=== PATIENT | male | born 1945 | race Caucasian/White ===

== ENCOUNTER 2019-11-07 12:11 | Outpatient (CLI) | payer OTHER ==
[~2019-11-07 12:11] MED LIST: BUPR-173 PO; CIPR500T3 PO; CITA40TA12 PO; DOCU240C53 PO; ENOX100S5 SQ; GABA300C10 PO; METR500T PO; MORP30TA PO; OMEP-110 PO; PROM25SU34 PO; SENN8.6T64 PO; SIMV10TA18 PO; WARF10TA PO
[2019-11-07] MEDS ORDERED: FENTANYL PF 100 MCG/2ML ONE (13:09)
[2019-11-07] MEDS ORDERED: NALOXONE 1 MG/ML, 2ML ONE (13:09)
[2019-11-07] MEDS ORDERED: FLUMAZENIL 0.1 MG/1 ML, 5ML ONE (13:09)
[2019-11-07] MEDS ORDERED: MIDAZOLAM 1 MG/ML, 5ML ONE ×2 (13:09)
[2019-11-07] MEDS ORDERED: DIPHENHYDRAMINE 50 MG/ML, 1ML ONE (14:14)
== END 2019-11-07 23:59 | disposition home or self-care (01) ==
LOC: RAD 12:11
PROVIDERS: ATTEND Nurse Practitioner Family
DX: M54.5 Low back pain (principal); M47.896 Other spondylosis, lumbar region; M47.894 Other spondylosis, thoracic region; J43.9 Emphysema, unspecified; G20 Parkinson's disease; G47.30 Sleep apnea, unspecified; F17.210 Nicotine dependence, cigarettes, uncomplicated; Z88.0 Allergy status to penicillin; Z88.8 Allergy status to other drugs, medicaments and biological substances; Z88.1 Allergy status to other antibiotic agents; Z79.2 Long term (current) use of antibiotics; Z86.73 Personal history of transient ischemic attack (TIA), and cerebral infarction without residual deficits
CPT/HCPCS: 72146; 72148; 99156; 99157; J1200; J2250; J3010; J2310

== ENCOUNTER 2020-10-21 07:29 | Emergency (ER) | payer MEDICARE, OTHER ==
[~2020-10-21] VITALS: Ht 167.6 cm; Wt 81.9 kg
[~2020-10-21 07:29] MED LIST changes: -CIPR500T3 PO; +CIPR500T4 PO
--- NOTE | 2020-10-21 07:45 | NUR ---
PROVIDER AT BEDSIDE TO DO EVALUATION OF L HIP AND PT.
--- NOTE | 2020-10-21 07:46 | NUR ---
BIB EMS STATE PT FELL THIS AM 0400 WHILE TRYING TO GET OUT OF THE SHOWER ON A 4 INCH LIP. PT INJURED LEFT HIP AND HAD DIFFICULTY WALKING ON IT, NEED WALKER. PT STATES DOESN'T BELIEVE LOST CONSCIOUSNESS, AND NO SECONDARY INJURIES. PT IS ON BLOOD THINNERS FOR THE LAST 20 YEARS FROM TX AND PREVIOUS BLOOD CLOTS. PT DENIES HITTING HEAD.
--- NOTE | 2020-10-21 08:05 | NUR ---
PT TO RADIOLOGY TO LOOK AT HIP.
--- NOTE | 2020-10-21 08:35 | NUR ---
PT BACK FROM RADIOLOGY
[2020-10-21] MEDS ORDERED: hydrOXyzine 10MG TABLET PO ONE (09:00)
--- NOTE | 2020-10-21 09:02 | NUR ---
PT ASKING FOR WATER, GIVEN GLYCERIN SWABS.
--- NOTE | 2020-10-21 09:31 | NUR ---
TASK RN: UPON ENTERING PT ROOM, PT ASKING FOR PAIN MEDS. DISCUSSED WITH PT, DR ANGEL WOULD LIKE HIM TO TRY TO BEAR WEIGHT AND WALK. PT NORMALLY USES 2 CANES. "THEY ONLY BROUGHT ONE WITH ME" PT PROVIDED WITH A WALKER. PT ABLE TO BEAR WEIGHT AND AMB OUT TO WOLFF. GAIT SLOW AND STEADY. DR ANGEL NOTIFIED. PT STATES "HAVE A WALKER AT HOME" REPORT TO STEVEN DINH.
[2020-10-21] MEDS ORDERED: ACETAMINOPHEN 500 MG TABLET PO ONE (10:00)
[2020-10-21] MEDS ORDERED: ACETAMINOPHEN 500 MG TABLET ONE (10:23)
--- NOTE | 2020-10-21 11:10 | NUR ---
SPOKE WITH AT [facility]. SHE WILL TRY TO GET SOMEONE HERE SOON POSSIBLE WITH O2
[2020-10-21 11:15] VITALS: BP 133/71
--- NOTE | 2020-10-21 11:16 | NUR ---
PT STATES PAIN MEDS HELPED SLIGHTLY. PT WAITING FOR DAUGTER TO PATIENT PORTAL REPRESENTATIVE FOR RIDE AFTER 1200 NOON, KNOW PT NEEDS OXYGEN TANK FOR RIDE.
--- NOTE | 2020-10-21 11:25 | NUR ---
RECEIVED REPORT FROM STEVEN DINH, PT AWAITING DAUGHTER ARRIVAL FOR TRANSPORT HOME, NAD/PWD.
--- NOTE | 2020-10-21 11:29 | NUR ---
GAVE REPORT TO PADMINI DINH TO ASSUME CARE
--- NOTE | 2020-10-21 11:57 | NUR ---
Patient given discharge instructions and they have confirmed that they understand the instructions. Patient ambulatory with 2 canes. NAD, all questions answered appropriately, denies additional needs at this time. No personal belongings left in room after discharge.
== END 2020-10-21 12:30 | disposition home or self-care (01) ==
LOC: ED 08:33
DX: S70.02XA Contusion of left hip, initial encounter (principal); R94.31 Abnormal electrocardiogram [ECG] [EKG]; I10 Essential (primary) hypertension; I25.10 Atherosclerotic heart disease of native coronary artery without angina pectoris; E78.5 Hyperlipidemia, unspecified; I25.2 Old myocardial infarction; F17.200 Nicotine dependence, unspecified, uncomplicated; Z86.73 Personal history of transient ischemic attack (TIA), and cerebral infarction without residual deficits; Z90.89 Acquired absence of other organs; W18.30XA Fall on same level, unspecified, initial encounter; Y93.89 Activity, other specified; Y92.009 Unspecified place in unspecified non-institutional (private) residence as the place of occurrence of the external cause; Y99.8 Other external cause status
CPT/HCPCS: 93005; 99283